=== PATIENT | female | born 1960 | race Caucasian/White ===

== ENCOUNTER 2022-08-14 08:12 | Day surgery (SDC) | payer BC ==
[2022-08-14 08:33] LABS: PTT 24.2 sec (22.9-36.1); Prothrombin Time 13.3 sec (12.0-14.7)
[2022-08-14 11:15] VITALS: BP 153/65; TEMP 97.5
== END 2022-08-14 11:30 | disposition home or self-care (01) ==
LOC: CT 08:12
PROVIDERS: ATTEND Internal Medicine
PROC: 079T3ZX Drainage of Bone Marrow, Percutaneous Approach, Diagnostic (ICD-10-PCS; principal; 2022-08-14)
DX: D47.2 Monoclonal gammopathy (principal); C90.00 Multiple myeloma not having achieved remission; D80.1 Nonfamilial hypogammaglobulinemia; L97.909 Non-pressure chronic ulcer of unspecified part of unspecified lower leg with unspecified severity; Z90.710 Acquired absence of both cervix and uterus
CPT/HCPCS: 20225; 77002; 85097; 85610; 85730; 88184; 88237; 88305; 88311

== ENCOUNTER 2024-01-14 09:01 | Outpatient (CLI) | payer MEDICARE, OTHER | END 2024-01-14 09:02 | disposition home or self-care (01) | LOC: BICMAMMO 09:01 | PROVIDERS: ATTEND Family Medicine | DX: N63.32 Unspecified lump in axillary tail of the left breast (principal); R59.0 Localized enlarged lymph nodes | CPT/HCPCS: 76642; 77065; G0279 ==

== ENCOUNTER 2024-02-07 11:45 | Outpatient (CLI) | payer MEDICARE, OTHER | END 2024-02-07 11:46 | disposition home or self-care (01) | LOC: PET 11:45 | PROVIDERS: ATTEND Internal Medicine | DX: D47.2 Monoclonal gammopathy (principal); R59.0 Localized enlarged lymph nodes | CPT/HCPCS: 78815; A9552 ==

== ENCOUNTER 2025-02-04 08:45 | Outpatient (CLI) | payer MEDICARE, OTHER | END 2025-02-04 08:46 | disposition home or self-care (01) | LOC: PET 08:45 | PROVIDERS: ATTEND Internal Medicine | DX: C91.10 Chronic lymphocytic leukemia of B-cell type not having achieved remission (principal); D47.2 Monoclonal gammopathy; R59.0 Localized enlarged lymph nodes | CPT/HCPCS: 78815; A9552 ==